=== PATIENT | female | born 1975 | race Caucasian/White ===

== ENCOUNTER 2025-07-06 07:55 | Emergency (ER) | payer MEDICAID, SELFPAY ==
[2025-07-06 08:09] VITALS: BP 107/86; PULSE 85; RESP 14; TEMP 36.5; O2SAT 100
--- NOTE | 2025-07-06 08:14 | CTR_ITS ---
PROCEDURE INFORMATION: Exam: CT Abdomen And Pelvis With Contrast Exam date and time: 07/06/2025 8:42 AM Age: 49 years old Clinical indication: Abdominal pain; Additional info: Abd pain TECHNIQUE: Imaging protocol: Computed tomography of the abdomen and pelvis with contrast. Radiation optimization: All CT scans at this facility use at least one of these dose optimization techniques: automated exposure control; mA and/or kV adjustment per patient size (includes targeted exams where dose is matched to clinical indication); or iterative reconstruction. Contrast material: OMNI 350; Contrast volume: 75 ml; Contrast route: INTRAVENOUS (IV); COMPARISON: CR (CHEST, ) 07/06/2025 8:33 AM RADIATION DOSE METRICS: Total DLP (mGy-cm): 367.82 FINDINGS: Lungs: Minimal basilar atelectasis. Coronary arteries: There is mild atherosclerotic calcification of the visualized coronary arteries. Liver: There is a small region of focal fatty infiltration adjacent to the falciform ligament. Gallbladder and biliary ducts: The gallbladder is not seen in his most likely surgically absent. Mild intrahepatic and extrahepatic biliary ductal dilatation with no mineralized stones seen. Findings could be related to reservoir effect in the absence of biliary stasis. Pancreas: The pancreas appears unremarkable. Spleen: Subcentimeter splenic hypodensity too small to classify, favored to represent a small cyst. Adrenal glands: The adrenal glands are unremarkable. Kidneys and ureters: No nephrolithiasis, hydronephrosis, or perinephric stranding. There are multiple tiny renal hypodensities that are too small to classify on the current examination, statistically most likely related to small cysts. Stomach and bowel: The right and transverse colon are mildly distended and contain intraluminal fluid. There are also nondilated fluid-filled loops of small bowel throughout the abdomen. Findings could reflect enteritis in the appropriate clinical setting. Correlate with symptoms. No discrete transition point seen to suggest obstruction at this time. No focal bowel wall thickening or inflammatory mesenteric stranding. No free air. Stomach mostly decompressed containing ingested material. Appendix: What is thought to represent the appendix appears unremarkable. No pericecal inflammatory changes. Intraperitoneal space: No free air. No significant free fluid. Vasculature: No aneurysm or dissection in the visualized aorta. The vasculature demonstrates mild atherosclerotic calcification. Lymph nodes: No pathologically enlarged lymph nodes demonstrated. Urinary bladder: Bladder mostly decompressed. Reproductive: 2 cm left ovarian cyst, which could be physiologic. retroverted uterus. Bones/joints: Moderate degenerative change in the lower lumbar spine. Degeneration related grade 1 anterolisthesis is present at L5-S1. Some sclerosis in the endplates at L5/S1, which may be reactive related to the moderate to severe disc space narrowing. Vacuum disc phenomenon seen at L4-L5 and L5-S1. Soft tissues: Small fat containing umbilical hernia with mild haziness of the fat within the hernia. CT/CT abdomen pelvis w con* [id number] IMPRESSION: 1. The right and transverse colon are mildly distended and contain intraluminal fluid. There are also nondilated fluid-filled loops of small bowel throughout the abdomen. Findings could reflect enteritis in the appropriate clinical setting. Correlate with symptoms. No discrete transition point seen to suggest obstruction at this time. No focal bowel wall thickening or inflammatory mesenteric stranding. No free air. What is thought to represent the appendix appears unremarkable. 2. The gallbladder is not seen in his most likely surgically absent. Mild intrahepatic and extrahepatic biliary ductal dilatation with no mineralized stones seen. Findings could be related to reservoir effect in the absence of biliary stasis. Correlate with laboratory values. If the patient has laboratory evidence of biliary stasis, MRCP could be obtained to further assess. 3. Small fat containing umbilical hernia with mild haziness of the fat within the hernia. This could be related to some entrapment of the mesenteric fat. No fluid or bowel within the hernia at this time. COMMENTS: Consistent with the [employer]'s Incidental Findings Committee white paper (J Am Reilly Radiol 2018): Any incidental renal lesion less than 1 cm or classified as too small to characterize, or any incidental cystic renal lesion characterized as simple-appearing, is likely benign. No follow-up imaging is recommended for these lesions per consensus recommendations based on imaging criteria. Findings were discussed with the clinician at the time of the exam.
--- NOTE | 2025-07-06 08:18 | ED_ITS ---
HPI - Abdominal Pain 2 General: Chief Complaint: Abdominal Pain Stated Complaint: stomach swollen Time Seen by Provider: 07/06/25 07:58 Source: patient Mode of arrival: ambulatory Limitations: no limitations History of Present Illness: 49-year-old female states that she has b een having some abdominal distention and pain has been going on for roughly a week. States she feels like her abdomen is distending and pushing on her ribs causing her to have mild dyspnea she denies any chest pain denies any vomiting or diarrhea. She denies any worse or improving factors denies any dysuria Associated Symptoms: Denies chills, diarrhea, fever(s), nausea and vomiting Related Data Previous Rx's ?Medication ?Instructions ?Recorded dicyclomine 20 mg tablet 20 mg PO QID PRN abdominal p ain 07/06/25 #20 tabs Allergies Allergy/AdvReac Type Severity Reaction Status Date / Time codeine Allergy Unknown Verified 07/06/25 08:09 Penicillins Allergy Unknown Verified 07/06/25 08:09 Review of Systems 2 Const: Denies: fever(s), chills, body aches or change in appetite ENMT: Denies: throat pain or dental pain Card: Denies: chest pain Resp: Reports: dyspnea GI: Reports: abdominal pain; Denies: nausea, vomiting or diarrhea Musc: Denies: neck pain or back pain Skin/Breast: Denies: rash Neuro: Denies: headache(s) PFSH ED 2 PFSH: Medical History Psychiatric care Physical Exam 2 Const: COMMON NORMALS: no acute distress, patient oriented x3 and healthy appearing HENMT: COMMON NORMALS: normocephalic and atraumatic HEAD & SCALP: n ormocephalic and atraumatic Eye: COMMON NORMALS: conjunctivae normal CONJUNCTIVA: Yes conjunctivae normal Neck/C-Spine: COMMON NORMALS: full ROM and supple Chest: COMMONS NORMALS: normal inspection of the chest Resp: COMMON NORMALS: normal respiratory effort, No retractions, No use of accessory muscles and clear to auscultation bilaterally AUSCULTATION: clear to auscultation bilaterally Cardio: COMMON NORMALS: regular rate, regular rhythm and No murmurs present (Cardio) RATE: regular rate RHYTHM: regular rhythm GI: COMMON NORMALS: Normal to inspection, nondistended, normoactive bowel sounds present, Soft to palpation and no masses PALPATION: Yes Soft to palpation OTHER: diffuse tenderness Extremity: COMMON NORMALS: normal to inspection and full ROM Neuro: COMMON NORMALS: patient oriented x3, moves all extremities and no focal motor deficits Psych: COMMON NORMALS: mental status grossly normal, Normal thought process present and cooperative THOUGHT PROCESS: Normal thought process present Skin: COMMON NORMALS: no rashes or lesions noted and no wounds GENERAL SKIN EXAM: no rashes or lesions noted Course 2 Vital Signs: Vital signs: Vital Signs Temperature 97.7 F 07/06/25 08:09 Pulse Rate 85 07/06/25 08:09 Respiratory Rate 14 07/06/25 08:34 Blood Pressure 107/86 07/06/25 08:09 Pulse Oximetry 96 07/06/25 08:34 Oxygen Delivery Me thod Room Air 07/06/25 08:09 MDM - Abdominal Pain Medical Decision Making Patient presents here with abdominal pain CT showed likely enteritis she has no signs of obstruction she has had no vomiting abdominal exam at discharge is benign we will get her follow-up with surgery she is to clear liquid diet she is return if worsening she understands agrees to plan. Medical Records I reviewed the patient's medical records. Lab Data I reviewed the patient's lab results. 07/06/25 08:22 07/06/25 08:22 Labs/Radiology: Radiology Impressions Abdomen/Pelvis CT 07/06/25 08:14 IMPRESSION: 1. The right and transverse colon are mildly distended and contain intraluminal fluid. There are also nondilated fluid-filled loops of small bowel throughout the abdomen. Findings could reflect enteritis in the appropriate clinical setting. Correlate with symptoms. No discrete transition point seen to suggest obstruction at this time. No focal bowel wall thickening or inflammatory mesenteric stranding. No free air. What is thought to represent the appendix appears unremarkable. 2. The gallbladder is not seen in his most likely surgically absent. Mild intrahepatic and extrahepatic biliary ductal dilatation with no mineralized stones seen. Findings could be related to reservoir effect in the absence of biliary stasis. Correlate with laboratory values. If the patient has laboratory evidence of biliary stasis, MRCP could be obtained to further assess. 3. Small fat containing umbilical hernia with mild haziness of the fat within the hernia. This could be related to some entrapment of the mesenteric fat. No fluid or bowel within the hernia at this time. COMMENTS: Consistent with the [employer] [place] [employer]'s Incidental Findings Committee white paper (J Am Reilly Radiol 2018): Any incidental renal lesion less than 1 cm or classified as too small to characterize, or any incidental cystic renal lesion characterized as simple-appearing, is likely benign. No follow-up imaging is recommended for these lesions per consensus recommendations based on imaging criteria. Findings were discussed with the clinician at the time of the exam. ADDENDUM: 07/06/25 0923 The findings were verbally communicated via telephone conference with TAMAR SALAS at 9:22 AM CDT on 07/06/2025. The findings were acknowledged and understood. Chest X-Ray 07/06/25 08:19 IMPRESSION: 1. No acute radiographic cardiopulmonary abnormality. 2. Mild elevation of the left hemidiaphragm. Laboratory Results WBC 12.08 10^3/uL (3.29-11.43) H 07/06/25 08:22 RBC 4.27 10^6/uL (3.85-5.65) 07/06/25 08:22 Hgb 12.90 g/dL (11.27-16.99) 07/06/25 08:22 Hct 40.4 % (36-47) 07/06/25 08:22 MCV 94.6 fl (85-98) 07/06/25 08:22 MCH 30.2 pg (27-33) 07/06/25 08:22 MCHC 31.9 g/dL (30-55) 07/06/25 08:22 RDW 14.2 % (12.1-15.1) 07/06/25 08:22 Plt Count 259 10^3/cmm (157-399) 07/06/25 08:22 MPV 10.9 fL (7.4-10.4) H 07/06/25 08:22 Neut % (Auto) 69.5 % 07/06/25 08:22 Lymph % (Auto) 21.1 % 07/06/25 08:22 [place] % (Auto) 5.9 % 07/06/25 08:22 Eos % (Auto) 2.7 % 07/06/25 08:22 Baso % (Auto) 0.2 % 07/06/25 08:22 Neut # (Auto) 8.39 10^3/uL (1.8-7.7) H 07/06/25 08:22 Lymph # (Auto) 2.6 10^3/uL (0.8-4.8) 07/06/25 08:22 [place] # (Auto) 0.7 10^3/uL (0.2-0.9) 07/06/25 08:22 Eos # (Auto) 0.3 10^3/uL (0.0-0.8) 07/06/25 08:22 Baso # (Auto) 0.0 10^3/uL (0.0-0.1) 07/06/25 08:22 Nucleated RBC % (auto) 0 % 07/06/25 08:22 Nucleated RBCs # 0.0 /100WBC 07/06/25 08:22 Sodium 136 mmol/L (136-145) 07/06/25 08:22 Potassium 4.1 mmol/L (3.5-5.1) 07/06/25 08:22 Chloride 101 mmol/L (98-107) 07/06/25 08:22 Carbon Dioxide 23 mmol/L (22-29) 07/06/25 08:22 Anion Gap 16.1 (5-19) 07/06/25 08:22 BUN 14 mg/dL (6-20) 07/06/25 08:22 Creatinine 0.7 mg/dL (0.5-0.9) 07/06/25 08:22 GFR Calculation 88.6 mL/min (90-130) L 07/06/25 08:22 Glucose 91 mg/dL (65-115) 07/06/25 08:22 Calculated Osmolality 282 mOsm/kg (285-295) L 07/06/25 08:22 Calcium 8.7 mg/dL (8.5-10.5) 07/06/25 08:22 Total Bilirubin 0.2 mg/dL (0.15-1.2) 07/06/25 08:22 AST 19 U/L (0-32) 07/06/25 08:22 ALT 16 U/L (0-33) 07/06/25 08:22 Alkaline Phosphatase 64 U/L (35-105) 07/06/25 08:22 Total Protein 7.1 g/dL (6.6-8.7) 07/06/25 08:22 Albumin 4.1 g/dL (3.5-5.2) 07/06/25 08:22 Globulin 3.0 g/dL (1.3-4.6) 07/06/25 08:22 Lipase 17 U/L (13-60) 07/06/25 08:22 Urine Color Yellow (Yellow) 07/06/25 08:21 Urine Appearance Clear (CLEAR) 07/06/25 08:21 Urine pH 5.5 (5-7) 07/06/25 08:21 Ur Specific [place] 1.018 (1.005-1.030) 07/06/25 08:21 Urine Protein Negative (Negative) 07/06/25 08:21 Urine Glucose (UA) Negative (Normal) 07/06/25 08:21 Urine Ketones Negative (Negative) 07/06/25 08:21 Urine Blood Negative (Negative) 07/06/25 08:21 Urine Nitrate Negative (Negative) 07/06/25 08:21 Urine Bilirubin Negative (Negative) 07/06/25 08:21 Urine Urobilinogen 1.0 mg/dL (Negative) 07/06/25 08:21 Ur Leukocyte Esterase Trace (Negative) A 07/06/25 08:21 Urine RBC 0-2 /hpf (0-2) 07/06/25 08:21 Urine WBC 0-5 /hpf (0-5) 07/06/25 08:21 Ur Squamous Epith Cells 6-10 /hpf (0-5) 07/06/25 08:21 Amorphous Sediment Not Reportable 07/06/25 08:21 Urine Bacteria None seen /hpf (NONE) 07/06/25 08:21 Hyaline Casts 1.21 /lpf 07/06/25 08:21 All radiology interpretation(s) finalized by discharge Discharge Plan Discharge Patient Disposition: Home Clinical Impression: Abdominal pain Condition: Stable Prescriptions: New dicyclomine 20 mg tablet 20 mg PO QID PRN (Reason: abdominal pain) Qty: 20 0RF Discharge Orders: Discharge ED (Routine); Ordered 07/06/25 Ordered By: Tamar Salas Referrals: Hi Scherer MD [Physician, General Surgery] - 4-7 days Discharge Diet: Clear Liquid Discharge Activity: Resume usual activity Patient Instructions: Abdominal Pain (ED), Enteritis (ED) Print Language: [place]ian Coding Level of Care Code ED Window Installer for Tanna Espinoza
--- NOTE | 2025-07-06 08:19 | XRR_ITS ---
PROCEDURE INFORMATION: Exam: XR Chest Exam date and time: 07/06/2025 8:33 AM Age: 49 years old Clinical indication: Shortness of breath; Additional info: SOB; Lt upper quadrant/epigastric pain x 2 weeks; Worse last 2 days TECHNIQUE: Imaging protocol: Radiologic exam of the chest. Views: 1 view. COMPARISON: No relevant prior studies available. FINDINGS: Lungs: No focal consolidation or other acute appearing pulmonary opacity. Pleural spaces: No pneumothorax. No significant pleural effusion. Heart/Mediastinum: The cardiac silhouette is normal in size. Diaphragm: Mild elevation of the left hemidiaphragm. Bones/joints: There is no acute osseous abnormality. XR/XR chest 1V portable [id number] IMPRESSION: 1. No acute radiographic cardiopulmonary abnormality. 2. Mild elevation of the left hemidiaphragm.
[2025-07-06 08:26] LABS: Hematocrit 40.4 % (36-47); Hemoglobin 12.90 g/dL (11.27-16.99); Mean Corpuscular HGB Conc 31.9 g/dL (30-55); Mean Corpuscular Hemoglobin 30.2 pg (27-33); Mean Corpuscular Volume 94.6 fl (85-98); Nucleated Red Blood Cells % 0 %; Platelet Count 259 10^3/cmm (157-399); Red Blood Count 4.27 10^6/uL (3.85-5.65); White Blood Count 12.08 10^3/uL (3.29-11.43)
[2025-07-06 08:26] LABS: Glucose Urine UA Negative (Normal); Nitrate Urine Negative (Negative); Specific Gravity, Urine 1.018 (1.005-1.030)
[2025-07-06 08:31] LABS: Add Urine Microscopic? YES
[2025-07-06] MEDS: ondansetron 2 mg/ML SDV 2 mL 4 MG IVP (08:33)
[2025-07-06 08:34] VITALS: RESP 14; O2SAT 96
[2025-07-06] MEDS: morphine 4 mg/mL SDV 1 mL IVP (08:34)
[2025-07-06 08:45] LABS: Alanine Aminotransferase 16 U/L (0-33); Albumin Level 4.1 g/dL (3.5-5.2); Alkaline Phosphatase 64 U/L (35-105); Anion Gap 16.1 (5-19); Aspartate Amino Transferase 19 U/L (0-32); Blood Urea Nitrogen 14 mg/dL (6-20); Calcium 8.7 mg/dL (8.5-10.5); Carbon Dioxide 23 mmol/L (22-29); Chloride 101 mmol/L (98-107); Creatinine Clr Calc Pharmacy 80.2181; Globulin 3.0 g/dL (1.3-4.6); Glucose 91 mg/dL (65-115); Lipase 17 U/L (13-60); Osmolality Calculated 282 mOsm/kg (285-295); Potassium 4.1 mmol/L (3.5-5.1); Sodium 136 mmol/L (136-145); Total Protein 7.1 g/dL (6.6-8.7)
[2025-07-06] MEDS: iohexol 350 mg/mL 500 mL Btl (per mL) IV (08:47)
[2025-07-06 09:44] VITALS: BP 106/76; PULSE 90; RESP 20; O2SAT 99
--- NOTE | 2025-07-07 08:36 | DCPLANNER ---
messaged gen surg for f/u
== END 2025-07-06 09:45 | disposition home or self-care (01) ==
PROVIDERS: Emergency Provider Emergency Medicine
DX: R10.9 Unspecified abdominal pain (principal)
CPT/HCPCS: 36415; 71045; 74177; 80053; 81001; 83690; 85025; 96374; 96375; 99285; J2270; J2405

== ENCOUNTER → 2025-08-05 11:26 | Outpatient (BNVA) | payer SELFPAY | PROVIDERS: Visit Provider Psychiatry & Neurology Psychiatry | DX: F11.20 Opioid dependence, uncomplicated (principal); F12.20 Cannabis dependence, uncomplicated; Z79.899 Other long term (current) drug therapy; F31.81 Bipolar II disorder; F60.3 Borderline personality disorder; F17.210 Nicotine dependence, cigarettes, uncomplicated | CPT/HCPCS: 80307 ==

== ENCOUNTER 2025-08-19 10:36 | Emergency (ER) | payer MEDICAID, SELFPAY ==
[2025-08-19 10:35] VITALS: BP 116/73; PULSE 104; RESP 17; TEMP 37; O2SAT 97; BMI 25.4
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
== END 2025-08-19 13:15 | disposition home or self-care (01) ==
PROVIDERS: Emergency Provider Physician Assistant
DX: R45.88 Nonsuicidal self-harm (principal)
CPT/HCPCS: 99283

== ENCOUNTER → 2025-09-02 12:10 | Outpatient (BNVA) | payer OTHER, SELFPAY | PROVIDERS: Visit Provider Psychiatry & Neurology Psychiatry | DX: F60.3 Borderline personality disorder (principal); F11.20 Opioid dependence, uncomplicated; F31.81 Bipolar II disorder; F12.20 Cannabis dependence, uncomplicated; Z79.899 Other long term (current) drug therapy; F17.210 Nicotine dependence, cigarettes, uncomplicated | CPT/HCPCS: 80307 ==